=== PATIENT | female | born 1950 | race Caucasian/White ===

== ENCOUNTER 2018-09-16 10:17 | Day surgery (SDC) | payer MEDICARE ==
[2018-09-16] MEDS ORDERED: SUCCINYLCHOLINE CHLORIDE 100 MG/5 ML SYG IV (11:19)
[2018-09-16] MEDS ORDERED: EPHEDrine 25 MG/5 ML SYG (11:19)
[2018-09-16] MEDS ORDERED: ONDANSETRON 4 MG INJ (11:19)
[2018-09-16] MEDS ORDERED: DESFLURANE 15 MIN (11:19)
[2018-09-16] MEDS ORDERED: PROPOFOL 20 ML (11:19)
[2018-09-16] MEDS ORDERED: CEFAZOLIN 1 GM INJ (11:19)
[2018-09-16] MEDS ORDERED: DEXAMETHASONE 4 MG/ML 5 ML INJ (11:19)
[2018-09-16] MEDS ORDERED: LIDOCAINE 100 MG SYRINGE (11:19)
[2018-09-16] MEDS ORDERED: FENTAnyl 50 MCG/ML VIAL (11:30)
[2018-09-16 11:59] LABS: ADD MAN DIFF? NO
[2018-09-16 12:11] LABS: BASOPHILS % 0.9 % (0.0-2.0); EOSINOPHILS # 0.1 10^3/ul (0.0-0.5); EOSINOPHILS % 3.7 % (0.0-7.0); HEMATOCRIT 42.7 % (37.0-47.0); HEMOGLOBIN 14.2 g/dl (12.0-16.0); LYMPHOCYTES # 1.7 10^3/ul (0.8-2.9); LYMPHOCYTES % 49.1 % (15.0-51.0); MEAN CORPUSCULAR HEMOGLOBIN 29.8 pg (29.0-33.0); MEAN CORPUSCULAR HGB CONC 33.3 g/dl (32.0-37.0); MEAN CORPUSCULAR VOLUME 89.5 fl (82.0-101.0); MEAN PLATELET VOLUME 10.7 fl (7.4-10.4); MONOCYTE # 0.3 10^3/ul (0.3-0.9); MONOCYTES % 9.1 % (0.0-11.0); NEUTROPHIL # 1.3 10^3/ul (1.6-7.5); NEUTROPHILS % 36.9 % (39.0-77.0); PLATELET COUNT 249 10^3/UL (140-415); RED BLOOD COUNT 4.77 10^6/ul (4.20-5.40); RED CELL DISTRIBUTION WIDTH 14.2 % (11.5-14.5)
[2018-09-16 12:11] LABS: WHITE BLOOD COUNT 3.5 10^3/ul (4.8-10.8)
[2018-09-16 12:17] LABS: HOLD TRANSMISSIONS 1
[2018-09-16] MEDS ORDERED: HYDROmorphONE 1 MG/5 ML IV SYRINGE IV ×2 (12:30)
[2018-09-16] MEDS ORDERED: METOCLOPRAMIDE 10 MG INJ IV (12:30)
[2018-09-16] MEDS ORDERED: FENTAnyl 50 MCG/ML VIAL IV ×2 (12:30)
[2018-09-16] MEDS ORDERED: hydrALAzine 20 MG INJ IV (12:30)
[2018-09-16] MEDS ORDERED: MEPERIDINE 25 MG INJ IV (12:30)
[2018-09-16] MEDS ORDERED: ONDANSETRON 4 MG INJ IV (12:30)
[2018-09-16] MEDS ORDERED: LABETALOL HCL 20MG INJ IV (12:30)
[2018-09-16 13:24] LABS: ANION GAP 10 (5-13); BLOOD UREA NITROGEN 9 mg/dl (7-20); CALCIUM 9.5 mg/dl (8.4-10.2); CARBON DIOXIDE 24 mmol/L (21-31); CHLORIDE 108 mmol/L (97-110); CREATININE 0.55 mg/dl (0.44-1.00); Estimated GFR > 60 mL/min (>60); GLUCOSE 98 mg/dl (70-220); POTASSIUM 3.6 mmol/L (3.5-5.1); SODIUM 142 mmol/L (135-144)
== END 2018-09-16 15:35 | disposition home or self-care (01) ==
LOC: SDS 10:17
DX: D06.9 Carcinoma in situ of cervix, unspecified (principal)
CPT/HCPCS: 57522; 80048; 82962; 85025; 86850; 86900; 86901; 88305